=== PATIENT | female | born 1985 ===

== ENCOUNTER → 2018-06-10 | Outpatient (REF) | payer SELFPAY ==
[2018-06-10 20:19] LABS: BACTERIA, URINE AUTO 1+ (NEGATIVE); MUCUS, URINE SMALL (NEGATIVE); RBC, URINE AUTO 11 /HPF (0-3); SQUAMOUS EPITHELIAL CELL UR AU 1 /HPF (0-6); WBC, URINE AUTO 20 /HPF (0-3)
[2018-06-10 21:41] LABS: CHLAMYDIA DNA AMPLIFICATION NEGATIVE (NEGATIVE); GC DNA AMPLIFICATION NEGATIVE (NEGATIVE)
== END ==
LOC: M LAB REF 10:12
PROVIDERS: ATTEND Physician Assistant
DX: R30.0 Dysuria (principal)